=== PATIENT | male | born 1960 | race African-American/Black ===

== ENCOUNTER → 2018-11-23 | Day surgery (SDC) | payer BC, OTHER ==
[2018-11-22 16:15] VITALS: BMI 33.4
[~2018-11-23] MED LIST: DEXAMETHASONE SOD PHOSPHATE 4 MG/1 ML VIAL ONE; LACTATED RINGERS SOLUTION 1,000 ML IV SCH; LIDOCAINE HCL/PF 2% SDV 5ML VIAL ONE; MIDAZOLAM HCL 2 MG/2 ML SINGLE DOSE VIAL ONE; ONDANSETRON 4 MG/2 ML VIAL IVPUSH PRN; PROPOFOL 20 ML ONE; SODIUM CHLORIDE 0.9% P/F 10 ML VIAL IJ ONE; ceFAZolin SODIUM 1 GM VIAL IVPB ONE; ceFAZolin SODIUM 1 GM VIAL ONE; oxyCODONE HCL 5 MG TABLET PO PRN
--- NOTE | 2018-11-23 12:19 | HP ---
History & Physical Update - History History: No Change - Physical Physical: No Change - Assessment Assessment: No Change - Plan Plan: No Change
--- NOTE | 2018-11-23 12:22 | OP ---
Operative Note - Note: Operative Date: 11/23/18 Pre-Operative Diagnosis: prostate cancer Operation: prostate cryoablation and cystoscopy Post-Operative Diagnosis: Same as Pre-op Surgeon: Nicolas Wise Anesthesiologist/SEWER PIPE LAYER HELPER: Wally Tobias Anesthesia: General Estimated Blood Loss (mls): 0 Drains & Tubes with Location: 18 fr knight Operative Report Dictated: Yes
--- NOTE | 2018-11-23 13:50 | EKG ---
Test Reason : Blood Pressure : / mmHG Vent. Rate : 085 BPM Atrial Rate : 085 BPM P-R Int : 150 ms QRS Dur : 142 ms QT Int : 418 ms P-R-T Axes : 070 -07 044 degrees QTc Int : 497 ms NORMAL SINUS RHYTHM RIGHT BUNDLE BRANCH BLOCK CANNOT RULE OUT INFERIOR INFARCT , AGE UNDETERMINED ABNORMAL ECG NO PREVIOUS ECGS AVAILABLE Confirmed by VASILE LICEA MD ([id number]) on 11/23/2018 1:50:44 PM Referred By: Nicolas Wise Confirmed By:VASILE LICEA MD
--- NOTE | 2018-11-23 14:23 | OP ---
DATE OF OPERATION: 11/23/2018 PREOPERATIVE DIAGNOSIS: Prostate cancer. POSTOPERATIVE DIAGNOSIS: Prostate cancer. PROCEDURE: Prostate cryoablation and cystoscopy. SURGEON: Nicolas Call MD TEAM ASSEMBLER: None. ANESTHESIA: General via laryngeal mask. ANESTHESIOLOGIST: Wally Tobias MD SPECIMENS: None. CULTURES: None. DRAINS: 18-[place] Villanueva catheter. ESTIMATED BLOOD LOSS: None. COMPLICATIONS: None. DESCRIPTION OF PROCEDURE: Patient was brought into the operating room, placed on the operating room table in supine position. After administration of general anesthesia via laryngeal mask, intravenous antibiotics were administered. The patient was placed in dorsal lithotomy position. Perineum was shaved 1st then the perineum and genitals were prepped and draped in the usual sterile manner. An 18-[place] Villanueva catheter was placed per urethra into the bladder, 10 mL was placed in the balloon. The bladder was then filled with approximately 350 mL of sterile normal saline and clamped. The Ioban was placed. Transrectal ultrasound was done, and transrectal ultrasound of the prostate was done, and a plan for cryoablation was devised for the focal right-sided cryoablation. Once the plan was devised, 3 prostate cryoablation probes were placed in the appropriate location under ultrasound guidance. Two temperature sensors were placed, 1 in the external sphincter, 1 in [place]illi[place] fascia. These were checked positioned and longitudinal and measurements were taken, and the probes were set at the appropriate lengths. Now, the Villanueva catheter was removed. Flexible cystoscopy was done and demonstrated no probes penetrated the bladder or prostatic urethra. The prostatic urethra measured approximately 5 cm in length. Demonstrated [id number] trilobar occlusion. The bladder was entered and thoroughly inspected. There were no foreign bodies, tumors, stones, inflammation. Both ureteral orifices were in their usual location with clear efflux bilaterally. Super Stiff guidewire was inserted into the bladder, and flexible cystoscope was removed, and urethral warmer was passed over the guidewire into the bladder. The guidewire was removed. Urethral warming was started, and now the cryoablation was done with 2 freeze/thaw cycles with excellent cryoablation of the right side of the prostate. At the end of the cryoablation, urethral warmer was left in place for an additional 5 minutes, and the 18-[place] Villanueva catheter was then placed placing gravity to drainage. Returned clear. A sterile compressive dressing was placed on the perineum with 4 x 4 and Tegaderm. He tolerated the procedure well. Transferred to the recovery room in stable condition. NICOLAS CALL M.D. MARIALUISA/[id number]
[2018-11-23 15:54] VITALS: BP 148/78; PULSE 71; TEMP 98.1
== END | disposition home or self-care (01) ==
LOC: JASU-SURG 10:54
PROVIDERS: ATTEND Urology
PROC: 0V503ZZ Destruction of Prostate, Percutaneous Approach (ICD-10-PCS; principal; 2018-11-23 12:00)
DX: C61 Malignant neoplasm of prostate (principal); I10 Essential (primary) hypertension; E11.9 Type 2 diabetes mellitus without complications
CPT/HCPCS: 55873; C2618; 82962; 93005; 93010; 94760